=== PATIENT | male | born 1985 | race Caucasian/White ===

== ENCOUNTER 2019-05-29 22:11 | Emergency (ER) | payer MEDICAID ==
[~2019-05-29] VITALS: Ht 175.3 cm; Wt 79.4 kg
[2019-05-29 22:17] VITALS: BP_SYST 147
--- NOTE | 2019-05-29 22:55 | NUR ---
Pt placed to ER bed 05, to gown, to patient monitor. Pt report given to LIZ Mendosa.
--- NOTE | 2019-05-29 23:01 | NUR ---
Pt presents to ER with c/o chest pain and meth use. Pt speech fast and disorganized. Pt states he has used meth for the past week and wants to get off of using drugs. Pt states he has smoked marijuana and used cocaine. Pt states he smokes, eats, inhales and uses IV methods for drug use. Pt staes he uses dirty needles and needles used by other people. Pt states history of HIV. Pt states left sided chest pain. Pt states pain is 9/10. Pt denies SOB, left arm pain, nausea, vomiting, fever. Will continue to monitor.
--- NOTE | 2019-05-29 23:20 | NUR ---
ER Dr. Jerez at bedside examining patient.
[2019-05-29 23:22] LABS: BILIRUBIN,URINE 1+ (NEGATIVE); BLOOD, URINE NEGATIVE (NEGATIVE); CLARITY/URINE CLEAR (CLEAR); COLOR,URINE YELLOW (YELLOW); GLUCOSE,URINE NEGATIVE (NEGATIVE); KETONES,URINE 1+ (NEGATIVE); LEUKOCYTE ESTERASE ,URINE NEGATIVE (NEGATIVE); NITRITE, URINE NEGATIVE (NEGATIVE); PROTEIN URINE NEGATIVE (NEGATIVE)
--- NOTE | 2019-05-29 23:25 | NUR ---
# 18 gauge angiocath placed to RAC. Use of asceptic technique. Opsite placed over site. Blood return noted. Blood for lab drawn from site. Flushed with 10 cc of normal saline. No evidence of infiltration noted. Patient tolerated well.
[2019-05-29] MEDS ORDERED: LORazepam 2 MG/ML VIAL IVP ONE (23:30)
[2019-05-29 23:33] LABS: CANNABINOID, URINE POSITIVE (NEG <=50); COCAINE, URINE POSITIVE (NEG <=150)
[2019-05-29 23:34] LABS: BARBITURATE, URINE NEGATIVE (NEG <=200); BENZODIAZEPINE, URINE NEGATIVE (NEG <=150); METHAMPHETAMINES SCREEN,URINE NEGATIVE (NEG <=500); OPIATE, URINE NEGATIVE (NEG <=100); PHENCYCLIDINE SCREEN,URINE NEGATIVE (NEG <=25); UR TRICYCLIC ANTIDEPRESSANTS NEGATIVE (NEG <=300); URINE AMPHETAMINE POSITIVE (NEG <=500); URINE METHADONE NEGATIVE (NEG <=200); URINE OXYCODONE SCREEN NEGATIVE (NEG <=100); URINE PROPOXYPHENE SCREEN NEGATIVE (NEG <=300)
[2019-05-29] MEDS ORDERED: NACL 0.9% 1,000 ML IV ONE (23:35)
[2019-05-29 23:42] LABS: BASOPHILS # (AUTO) 0.1 K/uL (0.0-0.2); BASOPHILS % (AUTO) 0.8 % (0.0-2.0); EOSINOPHILS # (AUTO) 0.1 K/uL (0.0-0.4); EOSINOPHILS % (AUTO) 1.7 % (0.0-4.0); HEMOGLOBIN 15.3 g/dL (14.0-18.0); LYMPHOCYTES # (AUTO) 3.1 K/uL (1.0-5.5); MEAN CORPUSCULAR HEMOGLOBIN 34 pg (27-31); MEAN CORPUSCULAR HGB CONC 36 % (32-36); MEAN CORPUSCULAR VOLUME 95 fL (79.0-98.0); MONOCYTES # (AUTO) 0.7 K/uL (0.0-1.0); MONOCYTES % (AUTO) 7.7 % (1.7-9.3); NEUTROPHILS # (AUTO) 4.8 K/uL (1.8-7.7); NEUTROPHILS % (AUTO) 54.8 % (40.0-70.0); PLATELET COUNT (AUTO) 301 K/uL (130-430); RED BLOOD CELL COUNT(AUTO) 4.52 MIL/uL (4.2-6.2); RED CELL DISTRIBUTION WIDTH 12.6 % (9.0-15.0); WHITE BLOOD COUNT (AUTO) 8.8 K/uL (4.8-10.8)
[2019-05-29 23:50] LABS: ANION GAP 13 (5-15); CALCIUM 9.3 mg/dL (8.4-11.0); CHLORIDE 99 mmol/L (98-107); CREATININE 1.24 mg/dL (0.55-1.30); GLUCOSE 101 mg/dL (70-99); POTASSIUM 3.3 mmol/L (3.5-5.1); SODIUM SERUM 135 mmol/L (136-145); UREA NITROGEN, BLOOD 21 mg/dL (8-21)
[2019-05-30 00:01] LABS: ALANINE AMINOTRANSFERASE 24 U/L (12-78); ALBUMIN 4.4 g/dL (3.4-4.8); ASPARTATE AMINOTRANSFERASE 18 U/L (10-37); TOTAL BILIRUBIN 1.3 mg/dL (0.0-1.0)
[2019-05-30 00:02] LABS: GFR AFRICAN AMERICAN 85 mL/min (>90)
--- NOTE | 2019-05-30 00:23 | NUR ---
Pt medicated per MD orders. Pt tolerated well. Will continue to monitor.
--- NOTE | 2019-05-30 01:11 | NUR ---
Pt provided with socks and warm blanket for comfort.
[2019-05-30] MEDS ORDERED: LORazepam 2 MG/ML VIAL IVP ONE (01:30)
[2019-05-30] MEDS ORDERED: POTASSIUM CHLORIDE 20 MEQ TAB.PRT.SR PO ONE (01:30)
--- NOTE | 2019-05-30 01:50 | NUR ---
Pt medicated per MD orders. Pt tolerated well.
[2019-05-30] MEDS ORDERED: NACL 0.9% 1,000 ML IV ONE (02:15)
--- NOTE | 2019-05-30 02:19 | NUR ---
Pt walked to restroom with steady gait.
--- NOTE | 2019-05-30 02:40 | NUR ---
Pt stated previously he wanted to get help for drug use and has history of depression. Pt provided with substance abuse facility form and mental health facility document.
[2019-05-30] MEDS ORDERED: LORazepam 1 MG TABLET PO ONE (03:00)
--- NOTE | 2019-05-30 03:03 | NUR ---
Pt medicated per MD orders.
[2019-05-30 03:10] VITALS: BP_SYST 116
--- NOTE | 2019-05-30 03:10 | NUR ---
Patient given written and verbal discharge instructions and verbalizes understanding. ER MD Jerez discussed with patient the results and treatment provided. Patient in stable condition. ID arm band removed. IV catheter removed intact and dressing applied, no active bleeding. No Rx given. Patient educated on pain management and to follow up with PMD. Pain Scale 0/10. Opportunity for questions provided and answered. Medication side effect fact sheet provided.
== END 2019-05-30 03:10 | disposition home or self-care (01) ==
LOC: SED 22:11
DX: F15.10 Other stimulant abuse, uncomplicated (principal); F12.90 Cannabis use, unspecified, uncomplicated
CPT/HCPCS: 36415; 80053; 80307; 81003; 84484; 85025; 93005; 96374; 96376; 99284; J2060; J7030 ×2